=== PATIENT | female | born 1960 | race Caucasian/White ===

== ENCOUNTER 2020-07-10 14:25 | Emergency (ER) | payer BC ==
--- NOTE | 2020-07-10 15:15 | EDM.PDOC ---
ED HPI GENERAL MEDICAL PROBLEM - General Chief Complaint: Fever Stated Complaint: ??? fever bodyaches Time Seen by Provider: 07/10/20 14:45 Source of Information: Reports: Patient, Family History Limitations: Reports: No Limitations - History of Present Illness INITIAL COMMENTS - FREE TEXT/NARRATIVE: brought in by family states she developed LAWLER fever chills and body aches have gotten worse in the last 2 day s yesterday temp was elevated to 102 has scratchy throat , has loss of sense of taste and smell Loss of appetite Did have fu vaccine had back surgery in april Onset: Gradual Onset Date: 07/08/20 Duration: Hour(s):, Getting Worse Location: Reports: Head, Generalized Quality: Reports: Ache, Dull Severity: Moderate Improves with: Reports: None Worsens with: Reports: None Context: Reports: Sick Contact Associated Symptoms: Reports: Cough, Loss of Appetite, Malaise Treatments 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 - Related Data Allergies Allergy/AdvReac Type Severity Reaction Status Date / Time No Known Allergies Allergy Verified 09/13/15 11:46 Home Meds: Home Meds Acetaminophen [Tylenol Extra Strength] 500 - 1,000 mg PO Q4HR PRN 09/13/15 [History] Amitriptyline [Elavil] 10 - 20 mg PO BEDTIME PRN 09/13/15 [History] Losartan/Hydrochlorothiazide [Hyzaar 100-12.5 Tablet] 1 each PO DAILY 09/13/15 [History] Tiotropium [Spiriva HandiHaler] 18 mcg INH ASDIRECTED PRN 09/13/15 [History] Triamcinolone Acetonide [Kenalog 0.1% Crm] 1 applic TOP BID 09/13/15 [History] rOPINIRole HCl [Ropinirole HCl] 2 - 4 mg PO DAILY 09/13/15 [History] Azithromycin [Zithromax] 500 mg PO DAILY #4 tab 07/10/20 [Rx] Past Medical History HEENT History: Reports: Impaired Vision Cardiovascular History: Reports: Hypertension Respiratory History: Reports: COPD Genitourinary History: Reports: Other (See Below) Other Genitourinary History: 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 Denies: Cough Cardiovascular: Denies: Chest Pain, Blood Pressure Problem Endocrine: Reports: Fatigue GI/Abdominal: Reports: No Symptoms : Reports: No Symptoms Musculoskeletal: Reports: Muscle Pain Skin: Reports: No Symptoms Neurological: Reports: No Symptoms Psychiatric: Reports: No Symptoms Hematologic/Lymphatic: Reports: No Symptoms Immunologic: Reports: No Symptoms ED EXAM, GENERAL - Physical Exam Exam: See Below Exam Limited By: No Limitations General Appearance: Alert, WD/WN, No Apparent Distress Eye Exam: Bilateral Eye: EOMI Ears: Normal External Exam Nose: Normal Inspection Throat/Mouth: Normal Inspection, Inflammation Head: Atraumatic, Normocephalic Neck: Supple, Non-Tender Respiratory/Chest: No Respiratory Distress, Lungs Clear Cardiovascular: Normal Peripheral Pulses, Regular Rate, Rhythm GI/Abdominal: Soft, Non-Tender Back Exam: Normal Inspection, Full Range of Motion Extremities: Normal Range of Motion Neurological: Alert, Oriented, CN II-XII Intact Psychiatric: Normal Affect Skin Exam: Warm, Dry, Intact Course - Orders/Labs/Meds Orders: Active Orders 24 hr Category Date Time Status Isolation [COMM] Routine Oth 07/10/20 15:13 Ordered Labs: Laboratory Tests 07/10/20 07/10/20 07/10/20 Range/Units 15:17 15:40 16:26 WBC 7.2 (3.0-10.3) x10-3/uL RBC 3.69 (3.60-5.20) x10(6)uL Hgb 11.7 (11.4-15.5) g/dL Hct 34.3 (34.2-48.2) % MCV 93.0 (76.7-100.5) fL MCH 31.6 (23.9-33.9) pg MCHC 34.0 (31.9-34.8) g/dL RDW 12.7 (12.3-16.5) % Plt Count 329 (151-488) x10(3)uL MPV 7.7 (7.1-12.4) fL Neut % (Auto) 80.0 H (30.8-76.2) % Lymph % (Auto) 9.4 L (18.4-52.1) % [place] % (Auto) 9.9 (4.4-15.7) % Eos % (Auto) 0.3 L (0.6-8.1) % Baso % (Auto) 0.4 (0.2-1.5) % Neut # (Auto) 5.7 (1.5-6.3) x10-3/uL Lymph # (Auto) 0.7 L (1.0-4.4) x10-3/uL [place] # (Auto) 0.7 (0.3-1.0) x10-3/uL Eos # (Auto) 0.0 (0.0-0.8) x10-3/uL Baso # (Auto) 0.0 (0.0-0.1) x10-3/uL Urine Color [place] (YELLOW) Urine Appearance Clear (CLEAR) Urine pH 5.0 (5.0-6.5) Ur Specific [place] 1.020 (1.010-1.025) Urine Protein Negative (NEGATIVE) mg/dL Urine Glucose (UA) Normal (NORMAL) mg/dL Urine Ketones Negative (NEGATIVE) mg/dL Urine Occult Blood Trace (NEGATIVE) Urine Nitrite Negative (NEGATIVE) Urine Bilirubin Negative (NEGATIVE) Urine Urobilinogen Normal (NEGATIVE) mg/dL Ur Leukocyte Esterase Negative (NEGATIVE) Urine RBC Not seen (0-5) Urine WBC 0-5 (0-5) Ur Squamous Epith Cells Few H (NS,R,O) Urine Bacteria Few H (NS) SARS-CoV-2 RNA (SENA) Negative (NEGATIVE) Meds: Medications Discontinued Medications Generic Name Dose Route Start Last Admin Trade Name Freq PRN Reason Stop Dose Admin Azithromycin 500 mg 07/10/20 17:08 07/10/20 17:45 Zithromax PO 07/10/20 17:09 500 mg ONETIME ONE Administration Ceftriaxone Sodium 1 gm 07/10/20 17:07 07/10/20 17:44 Rocephin IM 07/10/20 17:08 1 gm ONETIME ONE Administration Departure - Departure Time of Disposition: 17:55 Disposition: Home, Self-Care 01 Condition: Fair Clinical Impression: Pharyngitis, Fever - Discharge Information *PRESCRIPTION DRUG MONITORING PROGRAM REVIEWED*: Not Applicable *COPY OF PRESCRIPTION DRUG MONITORING REPORT IN PATIENT DARNELL: Not Applicable Prescriptions: Azithromycin [Zithromax] 500 mg PO DAILY #4 tab Instructions: Pharyngitis, [id number] Referrals: PCP,None [Ordering Only Provider] - Forms: ED Department Discharge Additional Instructions: Warm salt water gurgles 3 times daily Take Vitamin C and Zinc supplements Recommend retest for COVID in 5-7 days if symptoms sill present Follow with your PCP - My Orders Last 24 Hours: My Active Orders 07/10/20 15:13 Isolation [COMM] Routine - Assessment/Plan Last 24 Hours: My Active Orders 07/10/20 15:13 Isolation [COMM] Routine
[2020-07-10] MEDS ORDERED: cefTRIAXone 1 GM Vial IM ONE (17:07)
[2020-07-10] MEDS ORDERED: Azithromycin 500 MG Tab PO ONE (17:08)
[2020-07-10 21:42] VITALS: BP 129/59; PULSE 89
== END 2020-07-10 18:10 | disposition home or self-care (01) ==
LOC: FB.ED 14:25
DX: J02.9 Acute pharyngitis, unspecified (principal); Z20.828 Contact with and (suspected) exposure to other viral communicable diseases; I10 Essential (primary) hypertension; J44.9 Chronic obstructive pulmonary disease, unspecified; Z90.49 Acquired absence of other specified parts of digestive tract; Z79.899 Other long term (current) drug therapy
CPT/HCPCS: 36415; 81001; 85025; 87635; 87804; 96372; 99283; A9270; J0696; U0002